=== PATIENT | male | born 1995 | race African-American/Black ===

== ENCOUNTER 2022-01-04 19:04 | Emergency (ER) | payer BC, SELFPAY ==
[2022-01-04 20:20] LABS: Bacteria/HPF None Seen HPF (None Seen); Bilirubin Negative (Negative); Blood, Urine Negative (Negative); Clarity Clear (Clear); Glucose, Urine (Dipstick) Normal (Negative); Ketone, Urine Negative (Negative); Leukocyte 25 Leu/uL (Negative); Nitrite Negative (Negative); Protein, Urine (Dipstick) 20 mg/dL (Neg-Trace); RBC/HPF 0-3 HPF (0-3); Specific Gravity, Urine 1.035 (1.002-1.036); Squamous Epithelial None Seen HPF (0-3); Urobilinogen Normal mg/dL (Less than 2); WBC/HPF 0-3 HPF (0-3); pH, Urine 5.5 (5.0-9.0)
[2022-01-04] MEDS ORDERED: cefTRIAXone\\ROCEPHIN 500 MG VIAL ONE (23:28)
[2022-01-04] MEDS ORDERED: Lidocaine 1% PF 5 ML VIAL ONE (23:29)
[2022-01-05 13:09] LABS: Chlam.trachomatis by PCR,Urine Not Detected (NotDetected)
== END 2022-01-04 23:41 | disposition home or self-care (01) ==
LOC: ERS 19:04
DX: S30.22XA Contusion of scrotum and testes, initial encounter (principal); W21.02XA Struck by soccer ball, initial encounter; Y93.66 Activity, soccer
CPT/HCPCS: 76870; 81003; 81015; 87491; 87591; 93976; 96372; J0696